=== PATIENT | male | born 1950 | race Two or more races ===

== ENCOUNTER 2025-03-18 19:08 | Emergency (ER) | payer MEDICARE, OTHER ==
[~2025-03-18] VITALS: Ht 172.7 cm; Wt 74.8 kg
[2025-03-18] MEDS ORDERED: MAG HYDROX/AL HYDROX/SIMETH 30 ML UDC ONE (21:07)
[2025-03-18] MEDS: MAG HYDROX/AL HYDROX/SIMETH 30 ML UDC PO ONE (21:07)
[2025-03-18 21:26] VITALS: BP 119/73; TEMP 98.5; O2SAT 98
== END 2025-03-18 21:27 | disposition home or self-care (01) ==
LOC: ER 19:16
DX: Z04.3 Encounter for examination and observation following other accident (principal); E11.9 Type 2 diabetes mellitus without complications; Z79.01 Long term (current) use of anticoagulants; Z87.820 Personal history of traumatic brain injury; W06.XXXA Fall from bed, initial encounter; Y93.89 Activity, other specified; Y92.89 Other specified places as the place of occurrence of the external cause; Y99.8 Other external cause status
CPT/HCPCS: 70450-TC

== ENCOUNTER 2025-04-16 14:00 | Emergency (ER) | payer MEDICARE, OTHER ==
[~2025-04-16] VITALS: Ht 172.7 cm; Wt 81.6 kg
[2025-04-16] MEDS ORDERED: IBUPROFEN 400 MG TABLET ONE (14:43)
[2025-04-16] MEDS: IBUPROFEN 400 MG TABLET PO ONE (14:59)
[2025-04-16 17:13] VITALS: BP 127/76; TEMP 98.3; O2SAT 96
== END 2025-04-16 17:14 ==
LOC: ER 14:06
DX: M79.641 Pain in right hand (principal)
CPT/HCPCS: 73130-TC